=== PATIENT | female | born 1950 | race Caucasian/White ===

== ENCOUNTER → 2016-05-16 | Outpatient (REF) | LOC: WSOH 08:00 | DX: Z02.89 Encounter for other administrative examinations (principal) ==

== ENCOUNTER → 2016-10-27 | Outpatient (CLI) | payer MEDICARE, OTHER | LOC: MC.RAD 08:25 | DX: Z12.31 Encounter for screening mammogram for malignant neoplasm of breast (principal) ==

== ENCOUNTER → 2018-01-17 | Outpatient (CLI) | payer MEDICARE, OTHER | LOC: MC.RAD 14:00 | DX: Z12.31 Encounter for screening mammogram for malignant neoplasm of breast (principal) ==

== ENCOUNTER → 2019-01-23 | Outpatient (CLI) | payer MEDICARE, OTHER | LOC: MC.RAD 13:06 | DX: Z12.31 Encounter for screening mammogram for malignant neoplasm of breast (principal) ==

== ENCOUNTER → 2020-02-11 | Outpatient (CLI) | payer MEDICARE, OTHER | LOC: MC.RAD 09:18 | DX: Z12.31 Encounter for screening mammogram for malignant neoplasm of breast (principal) ==